=== PATIENT | male | born 1990 | race Caucasian/White ===

== ENCOUNTER 2016-09-01 18:26 | Emergency (ER) | payer MEDICAID, OTHER ==
[~2016-09-01] VITALS: Ht 175.3 cm; Wt 77.1 kg
[~2016-09-01 18:26] MED LIST: KEFLEX500 MG ORAL; NKM
[2016-09-01] MEDS ORDERED: Ketorolac 30mg Inj IM ONE (19:00)
[2016-09-01 19:03] VITALS: BP 144/98
[2016-09-01] MEDS ORDERED: CYCLOBENZAPRINE10 MG ORAL (19:39)
[2016-09-01] MEDS ORDERED: IBUPROFEN600 MG ORAL (19:39)
[2016-09-01 19:43] VITALS: BP 144/98
--- NOTE | 2016-09-01 20:35 | Emergency Room Report ---
History of Present Illness General Chief Complaint: Pain Source: Patient Present Illness HPI The patient is a 26-year-old male presenting for right lower back pain which began 1 month prior. The patient states that the pain is a 5/10 the pain radiates from the right buttock down the back of the right leg. The pain is worse with certain movements such as walking or bending over. The patient also admits to a slight tingling sensation when the pain occurs. Patient denies numbness. The patient denies any known injury that may have caused this and denies history of sciatica. Allergies: Coded Allergies: No Known Allergies (Unverified , 09/21/15) Patient History Past Medical History: see triage record Pertinent Family History: none Reviewed Nursing Documentation: PMH: Agreed, PSxH: Agreed Nursing Documentation-PMH Past Medical History: No Stated History Review of Systems All Other Systems: negative except mentioned in HPI Physical Exam Vital Signs Date Time Temp Pulse Resp B/P Pulse Ox O2 Delivery O2 Flow Rate FiO2 09/01/16 18:34 98.2 86 20 144/98 98 Room Air Sp02 EP Interpretation: reviewed, normal General Appearance: no apparent distress, alert, GCS 15, non-toxic Head: normocephalic, atraumatic Eyes: bilateral eye PERRL, bilateral eye normal inspection Genitourinary: normal inspection, no CVA tenderness Musculoskeletal: back normal, gait/station normal, normal range of motion, tender - TTP over R buttock Neurologic: alert, oriented x3, responsive, motor strength/tone normal, DTRs symmetric, sensory intact, normal gait, speech normal Psychiatric: judgement/insight normal, memory normal, mood/affect normal, no suicidal/homicidal ideation Skin: normal color, no rash, warm/dry, well hydrated Lymphatic: no adenopathy Medical Decision Making PA Attestation Dr. Ricketts is my supervising physician. Patient management was discussed with my supervising physician Diagnostic Impression: Primary Impression: Muscle strain ER Course The patient is a 26-year-old male presenting for right lower back pain which began 1 month prior. Ddx considered include but not limited to sprain/strain, fracture, contusion, sciatica Physical exam: Vitals within normal limits. No apparent distress. Musculoskeletal: No midline tenderness. No step-offs. No edema. There is tenderness to palpation over the right paraspinous muscles and right buttock. X-ray of lumbar spine is unremarkable The patient is given Toradol for pain with good relief. The patient is discharged home with a prescription for Motrin and Flexeril. ER precautions are given and the patient will follow up with primary care physician Other X-Ray Diagnostic Results Other X-Ray Diagnostic Results : X-Ray Ordered: L spine Date: Sep 01, 2016 EP Interpretation: Yes Findings: no fractures, no dislocation, no soft tissue swelling Number of Views: 3 PA Scribe Text I am acting as scribe for my supervising physician. My supervising physician's interpretation of the Lumbar spine xrays are there are no fractures, dislocations or soft tissue swelling. Last Vital Signs Date Time Temp Pulse Resp B/P Pulse Ox O2 Delivery O2 Flow Rate FiO2 09/01/16 19:43 98.2 86 20 144/98 98 Room Air Status: improved Disposition: HOME, SELF-CARE Condition: Improved Scripts Cyclobenzaprine Hcl* (FLEXERIL*) 10 Mg Tablet 10 MG ORAL THREE TIMES A DAY, #15 TAB Prov: RYLAND RICKS.ALaura 09/01/16 Ibuprofen* (MOTRIN*) 600 Mg Tablet 600 MG ORAL Q8H Y for For Pain, #30 TAB 0 Refills Prov: RYLAND RICKS P.A. 09/01/16 Patient Instructions: Heat Therapy, Muscle Strain Additional Instructions: I discussed my findings with the patient. All questions and concerns have been answered. Treatment and medication compliance have been addressed. I advised the patient that they need to follow up with PMD in 3-5 days. Return to ED if pain remains or worsens, numbness or tingling occurs, new rash is noticed, fever is noticed, or if needed for any reason. Patient verbalized understanding of discharge instructions. RYLAND RICKS Sep 01, 2016 20:35
--- NOTE | 2016-09-02 11:47 | Diagnostic Imaging Report ---
Indication: PAIN 2 weeks Technique: 3 views of the lumbar spine Comparison: None Findings:Bony alignment is normal vertebral body heights are preserved. Disc spaces are preserved. The pedicles are intact. Sacral arches are preserved. Sacroiliac joint spaces are preserved. The surrounding soft tissues are unremarkable Impression:Negative
== END 2016-09-01 19:44 | disposition home or self-care (01) ==
LOC: EMR 18:49
DX: S39.012A Strain of muscle, fascia and tendon of lower back, initial encounter (principal); X58.XXXA Exposure to other specified factors, initial encounter; Y92.9 Unspecified place or not applicable; Y99.8 Other external cause status
CPT/HCPCS: 72020; 96372; 99283; J1885